=== PATIENT | female | born 1970 | race Caucasian/White ===

== ENCOUNTER 2016-11-22 18:44 | Emergency (ER) | payer OTHER ==
[~2016-11-22] VITALS: Ht 167.6 cm; Wt 155.9 kg
[~2016-11-22 18:44] MED LIST: ADALAT CC 30 MG30 MG PO; ADVAIR HFA120 INHALA IH; ALPRAZOLAM0.25 M2 PO; FLUOXETINE HCL40 MG PO; LABETALOL HCL100 MG PO; LABETALOL HCL200 MG PO; LISINOPRIL10 MG PO; METHYLPHENIDATE20 M1 PO; NIFEDIPINE ER90 MG PO; PRAVASTATIN SOD40 MG PO; PREDNISONE10 MG PO; PRISTIQ50 MG PO; PROAIR HFA8.5 GM IH; PROZAC40 MG PO; TRANDATE100 MG PO; XOPENEX0.63 MG/3 IH; XOPENEX1.25 MG/3 IH; ZITHROMAX250 MG PO
[2016-11-22 19:39] LABS: ADD MIUA? YES; BILIRUBIN NEGATIVE; BLOOD NEGATIVE; COLOR YELLOW ((YELLOW)); GLUCOSE (STRIP) NEGATIVE; KETONES 5; LEUKOCYTES NEGATIVE; NITRITE NEGATIVE; PROTEIN (STRIP) 100; SPECIFIC GRAVITY 1.028 (1.000-1.030)
[2016-11-22 19:42] LABS: BACTERIA 2+ /HPF; EPITHELIAL CELLS 1+ /HPF; MUCUS TRACE /LPF; RED BLOOD CELLS 0-5 /HPF (0-5); UNCLASSIFIED CRYSTALS 2+ /HPF; WHITE BLOOD CELLS 0-5 /HPF (0-5)
[2016-11-22] MEDS ORDERED: BENTYL20 MG PO (21:09)
[2016-11-22] MEDS ORDERED: ZOFRAN ODT4 MG PO (21:09)
[2016-11-22] MEDS ORDERED: MIRALAX255 GM PO (21:12)
[2016-11-22 21:28] VITALS: BP 128/75
== END 2016-11-22 21:29 | disposition home or self-care (01) ==
LOC: EME 18:44
PROVIDERS: Physician Assistant
DX: K59.00 Constipation, unspecified (principal); R10.2 Pelvic and perineal pain; I10 Essential (primary) hypertension; J45.909 Unspecified asthma, uncomplicated; Z87.891 Personal history of nicotine dependence
CPT/HCPCS: 74020; 81003; 87086; 99281; 99283